=== PATIENT | female | born 1960 | race Caucasian/White ===

== ENCOUNTER 2016-11-17 02:12 | Emergency (ER) | payer MEDICARE ==
[~2016-11-17] VITALS: Ht 152.4 cm; Wt 80.0 kg
[~2016-11-17 02:12] MED LIST: ACTONEL35 MG OR; CALCIUM/D3600 MG PO; CALCIUM500 MG/D OR; CHARCOAL OR; COBAL-10001000 MCG IJ; CYANOCOBALAM IM; FENTANYL; KADIAN30 MG PO; KLOR-CON M2020 MEQ PO; LASIX40 MG OR; LORTAB 5/3255 MG PO; LUNESTA3 MG PO; MIRALAX3350 N1; MORPHINE; MOTRIN800 MG PO; PRILOSEC20 MG/CAP PO; RECLAST5 MG/100 M IV; SB ASA LOW81 MG OR; STOOL SOFTENER100 MG PO; VALTREX1 GM PO; VITAMIN D400 UNI2 OR; XANAX0.5 MG PO; ZANAFLEX2 MG OR; ZANAFLEX4 MG PO; [UNRECOGNIZED DRUG - CODE]; [UNRECOGNIZED DRUG - OTHER] OR; [UNRECOGNIZED DRUG - OTHER] OR; [UNRECOGNIZED DRUG - OTHER] OR
[2016-11-17] MEDS ORDERED: MORPHINE (02:49)
[2016-11-17 02:52] LABS: HEMATOCRIT 42.6 % (37.0-47.0); HEMOGLOBIN 13.5 g/dl (12.0-16.0); IMMATURE GRANULOCYTES 0.3 % (0.0-1.0); MEAN CORPUSCULAR HGB 23.4 pG CALC (26.0-32.0); MEAN CORPUSCULAR HGB CONC 31.7 g/L CALC (32.0-36.0); NEUT# 10.17 thou/uL (2.00-7.15); RED BLOOD COUNT 5.76 mill/uL (4.20-5.60); RED CELL DISTRI WIDTH 18.7 % (11.5-15.5)
[2016-11-17 03:02] LABS: ALBUMIN 5.1 g/dL (3.2-5.0); ALKALINE PHOSPHATASE 131 u/l (38-126); AMYLASE 57 u/l (30-110); ANION GAP 20 (6-22 (CALC)); BILIRUBIN, TOTAL 1.5 mg/dL (0.0-1.4); BUN 8 mg/dL (7-17); BUN/CREATININE RATIO 13 (12-20 (CALC)); CARBON DIOXIDE 25 mmol/l (22-30); CHLORIDE 98 mmol/l (95-108); CREATININE 0.7 mg/dL (0.5-1.0); GFR > 60 ML/MIN (>=60 (CALC)); GFR FOR AFR.AMER. > 60 ML/MIN (>=60 (CALC)); GLUCOSE 123 mg/dL (65-105); LIPASE 49 u/l (23-300); POTASSIUM 4.1 mmol/l (3.5-5.1); SGOT/AST 34 u/l (14-36); SGPT/ALT 44 u/l (9-52); SODIUM 140 mmol/l (137-146); TOTAL PROTEIN 9.6 g/dL (6.3-8.2)
[2016-11-17] MEDS ORDERED: PAROXETINE10 MG PO (03:21)
[2016-11-17 05:34] VITALS: BP 121/60
== END 2016-11-17 05:34 | disposition short-term general hospital (02) ==
LOC: ED 02:12
PROVIDERS: Emergency Medicine
DX: R10.33 Periumbilical pain (principal); K56.1 Intussusception; R10.13 Epigastric pain; R11.2 Nausea with vomiting, unspecified
CPT/HCPCS: Q9967; S0164

== ENCOUNTER 2018-06-07 12:21 | Outpatient (REF) | payer MEDICARE ==
[~2018-06-07 12:21] MED LIST changes: +PAROXETINE10 MG PO
[2018-06-07 15:42] VITALS: BP 126/69
== END 2018-06-07 17:15 | disposition home or self-care (01) ==
LOC: INF 12:21
PROVIDERS: ATTEND Internal Medicine
DX: D50.9 Iron deficiency anemia, unspecified (principal)

== ENCOUNTER 2018-12-04 21:35 | Emergency (ER) | payer MEDICARE ==
[~2018-12-04] VITALS: Ht 149.9 cm; Wt 79.0 kg
[2018-12-05 00:27] VITALS: BP 125/62
== END 2018-12-05 00:35 | disposition home or self-care (01) ==
LOC: ED 21:35
DX: S40.012A Contusion of left shoulder, initial encounter (principal); M25.512 Pain in left shoulder; W18.30XA Fall on same level, unspecified, initial encounter; Y93.01 Activity, walking, marching and hiking; Y92.009 Unspecified place in unspecified non-institutional (private) residence as the place of occurrence of the external cause

== ENCOUNTER 2020-04-18 07:57 | Day surgery (SDC) | payer MEDICARE ==
[~2020-04-18] VITALS: Ht 149.9 cm; Wt 89.8 kg
[~2020-04-18 07:57] MED LIST changes: +CYMBALTA30 MG PO; +IMPLANTED PAIN PUMP; +K-TAB20 MEQ PO; +MEGA BIOTIN10 MG PO; +MILK OF MAG30 ML/UDC PO; +MORPHINE O10 MG/5 ML PO; +MULTIVITAMI9 PO; +NAPROXEN EC500 MG PO; +PHENTERMINE37.5 MG PO; +PROBIOTI2 PO; +VITAMI16 PO; +VITAMIN D2 PO; +ZYRTEC10 MG PO
[2020-04-18 10:16] VITALS: BP 132/59
== END 2020-04-18 10:10 | disposition home or self-care (01) ==
LOC: ENDO 07:57 → ORM 08:00 → ENDO 09:25
PROVIDERS: ATTEND Surgery
PROC: 0DJ08ZZ Inspection of Upper Intestinal Tract, Via Natural or Artificial Opening Endoscopic (ICD-10-PCS; principal; 2020-04-18)
PROC: 0DJD8ZZ Inspection of Lower Intestinal Tract, Via Natural or Artificial Opening Endoscopic (ICD-10-PCS; 2020-04-18)
DX: R13.10 Dysphagia, unspecified (principal); K31.4 Gastric diverticulum; K59.00 Constipation, unspecified; K64.8 Other hemorrhoids; Z98.84 Bariatric surgery status; Z11.59 Encounter for screening for other viral diseases

== ENCOUNTER 2022-01-20 08:52 | Emergency (ER) | payer MEDICARE ==
[~2022-01-20] VITALS: Ht 149.9 cm; Wt 104.0 kg
[2022-01-20 08:58] VITALS: BP 123/73
[2022-01-20] MEDS ORDERED: HYDROCO/APAP1 TA9 PO (11:04)
== END 2022-01-20 11:20 | disposition home or self-care (01) ==
LOC: ED 08:52
PROC: 0HQ1XZZ Repair Face Skin, External Approach (ICD-10-PCS; principal; 2022-01-20)
DX: S01.81XA Laceration without foreign body of other part of head, initial encounter (principal); R51.9 Headache, unspecified; M25.522 Pain in left elbow; W18.30XA Fall on same level, unspecified, initial encounter; Y92.009 Unspecified place in unspecified non-institutional (private) residence as the place of occurrence of the external cause